=== PATIENT | female | born 1955 | race Caucasian/White ===

== ENCOUNTER → 2016-08-03 | Outpatient (REF) | payer BC ==
[2016-08-03 16:42] LABS: ANION GAP 5 MEQ/L (8-16); BLOOD UREA NITROGEN 18 MG/DL (7-18); CALCIUM LEVEL 8.6 MG/DL (8.5-10.1); CARBON DIOXIDE LEVEL 29 MEQ/L (21-32); CHLORIDE LEVEL 108 MEQ/L (98-107); CHOLESTEROL LEVEL 209 MG/DL (<200); GLOMERULAR FILTRATION RATE > 60.0 (>51); GLUCOSE, FASTING 97 MG/DL (70-105); POTASSIUM SERUM 4.4 MEQ/L (3.5-5.1); SODIUM LEVEL 142 MEQ/L (136-145); TRIGLYCERIDES LEVEL 139 MG/DL (<150)
== END ==
LOC: M SFHCCLAY 09:51
PROVIDERS: ATTEND Family Medicine
DX: E78.00 Pure hypercholesterolemia, unspecified (principal)

== ENCOUNTER → 2016-08-15 | Outpatient (REF) | payer BC | LOC: M SFHCCLAY 14:46 | PROVIDERS: ATTEND Family Medicine | DX: I10 Essential (primary) hypertension (principal) ==

== ENCOUNTER → 2017-08-06 | Outpatient (REF) | payer BC ==
[2017-08-06 19:19] LABS: ALBUMIN 3.5 GM/DL (3.2-5.2); ALBUMIN/GLOBULIN RATIO 1.06 (1.00-1.93); ALKALINE PHOSPHATASE 108 U/L (45-117); ALT/SGPT 28 U/L (12-78); ANION GAP 8 MEQ/L (8-16); AST/SGOT 19 U/L (7-37); BILIRUBIN,TOTAL 0.7 MG/DL (0.2-1.0); BLOOD UREA NITROGEN 22 MG/DL (7-18); CALCIUM LEVEL 8.5 MG/DL (8.8-10.2); CARBON DIOXIDE LEVEL 29 MEQ/L (21-32); CHLORIDE LEVEL 108 MEQ/L (98-107); CHOLESTEROL LEVEL 131 MG/DL (<200); CHOLESTEROL RISK RATIO 2.425 (<5); CREATININE FOR GFR 0.59 MG/DL (0.55-1.30); GLOMERULAR FILTRATION RATE > 60.0 (>45); GLUCOSE, FASTING 93 MG/DL (70-100); HDL CHOLESTEROL 54 MG/DL (>40); NON-HDL-C 77 MG/DL; POTASSIUM SERUM 3.9 MEQ/L (3.5-5.1); SODIUM LEVEL 145 MEQ/L (136-145); TOTAL PROTEIN 6.8 GM/DL (6.4-8.2); TRIGLYCERIDES LEVEL 85 MG/DL (<150)
== END ==
LOC: M SFHCCLAY 10:37
DX: E78.00 Pure hypercholesterolemia, unspecified (principal); I10 Essential (primary) hypertension
CPT/HCPCS: 80053

== ENCOUNTER → 2018-09-05 | Outpatient (CLI) | payer BC ==
--- NOTE | 2018-09-05 14:41 | REP ---
BILATERAL SCREENING DIGITAL MAMMOGRAM WITH 3D TOMOSYNTHESIS: There are no palpable abnormalities or other breast complaints. The the patient states she had a clinical breast examination 09/24 18. The the patient states she performs self-breast examinations 12 times per year. The Tyrer-Cuzick Score is: 4.2% . There are no comparisons, the study is a baseline examination. There are scattered areas of fibroglandular density. There is a 6 mm nodule containing multiple micro calcifications in the right breast slightly superomedial of midline approximately 6 cm from the nipple. This can be seen to best advantage on tomosynthesis. Impression: BIRADS/ACR category 0 mammogram. Incomplete, additional imaging evaluation is needed. Recommendation: The patient should return for spot magnification views and ultrasound of the right breast. This mammogram was interpreted with the aid of a FDA approved computer-aided detection system. A. Negative mammogram reports should not delay biopsy if a dominant or clinically suspicious mass is present. B. Not all breast cancers are identified by mammography or tomosynthesis. C. Adenosis and dense breasts may obscure an underlying neoplasm. Patient letter [id number]. Electronically Signed by Jose J Urrutia MD 09/05/2018 02:33 P
== END ==
LOC: M WHC 13:14
PROVIDERS: ATTEND Nurse Practitioner Women's Health
DX: Z12.31 Encounter for screening mammogram for malignant neoplasm of breast (principal)

== ENCOUNTER → 2018-09-05 | Outpatient (REF) | payer BC ==
[2018-09-11 14:22] LABS: HPV HYBRID CAPTURE II Negative (Negative)
== END ==
LOC: M SFHCWAGY 15:04
PROVIDERS: ATTEND Nurse Practitioner Women's Health
DX: Z12.4 Encounter for screening for malignant neoplasm of cervix (principal)
CPT/HCPCS: 87624; G0123

== ENCOUNTER → 2018-09-19 | Outpatient (CLI) | payer BC ==
--- NOTE | 2018-09-19 15:14 | REP ---
Digital diagnostic unilateral right breast mammography with CAD and focused right breast sonography: History: September 05, 2018 screening mammography was BIRADS category 0 for microcalcifications possibly associated with a small 6 mm nodule in the right breast superior medial quadrant. Diagnostic imaging was recommended. No remote prior mammography. Mammographic findings: Magnified focal spot compression CC, true mediolateral, and MLO views are obtained. These confirm the presence of a tight grouping of polymorphic calcifications in the superior medial quadrant of the right breast distributed in a 6 mm area. No definite nodular density is seen associated with this. No spiculation is seen. Otherwise negative. Sonographic findings: The right breast is scanned from 11 o'clock to 3 o'clock. Somewhat heterogeneous fibroglandular background echotexture is seen. No suspicious sonographic abnormality is seen. No acoustic shadowing is observed. There is an isoechoic nodular area adjacent to a duct at approximately 11 o'clock, but it is not clear that this represents the mammographic opacity. It is not suspicious by sonographic criteria. Impression: BIRADS category 4 suspicious right breast imaging. Microcalcific grouping superior medial quadrant right breast. Histologic sampling is warranted via stereotactic needle biopsy which is recommended. BIRADS 4: BI-RADS/ACR category 4 mammogram. Suspicious Abnormality - biopsy should be considered. This mammogram was interpreted with the aid of an FDA-approved computer-aided detection system. The patient states she had a clinical breast exam in September 2018. The patient letter being requested is m#[id number] . Electronically Signed by Louis Rodriguez MD 09/19/2018 05:35 P
== END ==
LOC: M RAD 10:50
PROVIDERS: ATTEND Nurse Practitioner Women's Health
DX: R92.0 Mammographic microcalcification found on diagnostic imaging of breast (principal)

== ENCOUNTER → 2019-07-04 | Outpatient (REF) | payer BC ==
[2019-07-04 17:10] LABS: HEMATOCRIT 41.7 % (36.0-47.0); HEMOGLOBIN 13.5 g/dl (12.0-15.5); MEAN CORPUSCULAR HEMOGLOBIN 31.9 pg (27.0-33.0); MEAN CORPUSCULAR HGB CONC 32.4 g/dl (32.0-36.5); MEAN CORPUSCULAR VOLUME 98.6 fl (80.0-96.0); PLATELET COUNT, AUTOMATED 255 10^3/uL (150-450); RED BLOOD COUNT 4.23 10^6/uL (4.00-5.40); WHITE BLOOD COUNT 8.4 10^3/uL (4.0-10.0)
[2019-07-04 17:50] LABS: ALBUMIN 3.3 GM/DL (3.2-5.2); BILIRUBIN,TOTAL 0.4 MG/DL (0.2-1.0); CALCIUM LEVEL 9.2 MG/DL (8.8-10.2); CHOLESTEROL RISK RATIO 2.937 (<5); GLOMERULAR FILTRATION RATE 59.8 (>45); POTASSIUM SERUM 4.6 MEQ/L (3.5-5.1); THYROID STIMULATING HORMONE 2.64 uIU/ML (0.358-3.740); TOTAL PROTEIN 6.3 GM/DL (6.4-8.2)
== END ==
LOC: M SFHCCLAY 09:11
PROVIDERS: ATTEND Family Medicine
DX: I10 Essential (primary) hypertension (principal); I48.0 Paroxysmal atrial fibrillation; J44.9 Chronic obstructive pulmonary disease, unspecified; E78.00 Pure hypercholesterolemia, unspecified

== ENCOUNTER → 2021-07-27 | Outpatient (REF) | payer BC | LOC: M SFHCCLAY 15:29 | PROVIDERS: ATTEND Family Medicine | DX: J06.9 Acute upper respiratory infection, unspecified (principal) ==

== ENCOUNTER → 2022-12-13 | Outpatient (REF) | payer MEDICARE, BC ==
[2022-12-13 18:42] LABS: RSV AMPLIFICATION NEGATIVE (NEGATIVE)
== END ==
LOC: M SFHCCLAY 14:45
PROVIDERS: ATTEND Physician Assistant
DX: J20.9 Acute bronchitis, unspecified (principal)

== ENCOUNTER → 2024-07-24 | Outpatient (REF) | payer MEDICARE, BC ==
[2024-07-24 17:10] LABS: BASO # 0.1 10^3/uL (0.0-0.2); HEMATOCRIT 41.6 % (36.0-47.0); HEMOGLOBIN 13.9 g/dl (12.0-15.5); LYMPH % 27.9 % (24.0-44.0); MEAN CORPUSCULAR HEMOGLOBIN 32.1 pg (27.0-33.0); MEAN CORPUSCULAR HGB CONC 33.4 g/dl (32.0-36.5); MEAN CORPUSCULAR VOLUME 96.1 fl (80.0-96.0); MONO # 0.7 10^3/uL (0.0-0.8); MONO % 10.1 % (2.0-8.0); NEUTROPHILS # 4.4 10^3/uL (1.5-8.5); NEUTROPHILS % 60.7 % (36.0-66.0); PLATELET COUNT, AUTOMATED 260 10^3/uL (150-450); RED BLOOD COUNT 4.33 10^6/uL (4.00-5.40); WHITE BLOOD COUNT 7.3 10^3/uL (4.0-10.0)
[2024-07-24 17:40] LABS: ALBUMIN 3.4 G/DL (3.2-5.2); BILIRUBIN,TOTAL 0.5 MG/DL (0.3-1.2); C REACTIVE PROTEIN QUANTITATIV 0.81 MG/DL (<1.0); CALCIUM LEVEL 9.6 MG/DL (8.3-10.6); CREATININE FOR GFR 1.29 MG/DL (0.55-1.30); GLOMERULAR FILTRATION RATE 45.5 (>45); POTASSIUM SERUM 4.6 MMOL/L (3.5-5.1); TOTAL PROTEIN 6.2 G/DL (5.7-8.2)
[2024-07-24 17:45] LABS: ERYTHROCYTE SEDIMENTATION RATE 33 mm/hr (0-30)
[2024-07-29 08:57] LABS: ANA SCREEN, IFA NEGATIVE (NEGATIVE)
== END ==
LOC: M LABDRAWC 16:39
PROVIDERS: ATTEND Internal Medicine Rheumatology
DX: M35.09 Sjogren syndrome with other organ involvement (principal); M15.0 Primary generalized (osteo)arthritis; I10 Essential (primary) hypertension; E78.00 Pure hypercholesterolemia, unspecified; M35.01 Sjogren syndrome with keratoconjunctivitis; G47.33 Obstructive sleep apnea (adult) (pediatric); J44.9 Chronic obstructive pulmonary disease, unspecified; R92.8 Other abnormal and inconclusive findings on diagnostic imaging of breast; Z12.39 Encounter for other screening for malignant neoplasm of breast; N95.8 Other specified menopausal and perimenopausal disorders; Z79.899 Other long term (current) drug therapy